=== PATIENT | female | born 1950 | race Caucasian/White ===

== ENCOUNTER 2025-05-24 19:22 | Inpatient (IN) | payer MEDICARE ==
[2025-05-25] MEDS ORDERED: Calcium Carbonate 500 MG ChewTAB PO PRN (00:20)
[2025-05-25] MEDS ORDERED: Acetaminophen 325 MG TAB PO PRN (00:20)
[2025-05-25] MEDS ORDERED: Electrolyte Replacement Protocol 1 EACH FS PRN (00:22)
[2025-05-25 03:48] LABS: #Basophils Less than 0.03 10x3/uL (0.0-0.2); #Eosinophils Less than 0.03 10x3/uL (0.0-0.7); #Monocytes 0.40 10x3/uL (0.11-0.59); #Neutrophils 11.24 10x3/uL (1.40-6.50); %Basophils 0.2 % (0.0-1.0); %Eosinophils 0.0 % (0.0-10.0); %Lymphocytes 5.8 % (21.0-51.0); %Monocytes 3.2 % (0.0-10.0); %Neutrophils 90.0 % (42.0-75.0); Hematocrit 38.1 % (36.0-47.0); Hemoglobin 12.1 g/dL (12.0-16.0); Mean Corpuscular Hemoglobin 33.1 pg (27.0-31.0); Mean Corpuscular Volume 104.1 fL (78.0-98.0); Platelet Count 241 10x3/uL (130-400); Red Blood Cell (RBC) Count 3.66 mill/uL (4.20-5.40); White Blood Cell (WBC) Count 12.49 10x3/uL (4.8-10.8)
[2025-05-25 03:56] VITALS: BMI 39.3
[2025-05-25 04:18] LABS: Troponin I 0.017 ng/mL (< 0.028)
[2025-05-25 04:44] LABS: Anion Gap 16 mmol/L (10-20); BUN (Urea Nitrogen) 18 mg/dL (9.8-20.1); Calc. Creatinine Clearance 99 mL/min (70-130); Calcium 8.7 mg/dL (7.8-10.44); Carbon Dioxide 22 mmol/L (23-31); Chloride 106 mmol/L (98-107); Glucose 174 mg/dL (83-110); Magnesium 2.1 mg/dL (1.6-2.6); Potassium 4.1 mmol/L (3.5-5.1); Sodium 140 mmol/L (136-145)
[2025-05-25] MEDS ORDERED: Non-Formulary Item 1 EACH (Fluticasone/Umeclidin/Vilanter [Trelegy Ellipta 100-62.5-25] 1 INH SCH (09:00)
[2025-05-25] MEDS: Cyanocobalamin (Vitamin B-12) 1,000 MCG TAB PO SCH (09:16)
[2025-05-25] MEDS: Famotidine 20 MG TAB PO SCH (09:17)
[2025-05-25] MEDS: Cholecalciferol 1,000 UNITS (25 MCG) TAB PO SCH (09:17)
[2025-05-25] MEDS: Mometasone 100 MCG HFA INHALER (RT USE) INH SCH (16:10)
[2025-05-25] MEDS: Benzocaine/Menthol 1 LOZ LOZ PO PRN (18:38)
[2025-05-25] MEDS: Ezetimibe 10 MG TAB PO SCH (21:43)
[2025-05-26] MEDS: Pantoprazole 40 MG DR.TAB PO SCH (08:25)
[2025-05-26] MEDS: Aspirin 81 mg Enteric Coated Tablet PO SCH (08:25)
[2025-05-26] MEDS: HYDROcodone/Acetaminophen 5/325 mg Tablet PO SCH (10:25)
[2025-05-26] MEDS: HYDROcodone/Acetaminophen 5/325 mg Tablet PO PRN (16:05)
[2025-05-27 03:48] LABS: #Basophils Less than 0.03 10x3/uL (0.0-0.2); #Eosinophils 0.07 10x3/uL (0.0-0.7); #Monocytes 1.03 10x3/uL (0.11-0.59); #Neutrophils 7.17 10x3/uL (1.40-6.50); %Basophils 0.2 % (0.0-1.0); %Eosinophils 0.7 % (0.0-10.0); %Lymphocytes 17.5 % (21.0-51.0); %Monocytes 10.1 % (0.0-10.0); %Neutrophils 70.6 % (42.0-75.0); Hematocrit 36.1 % (36.0-47.0); Hemoglobin 11.4 g/dL (12.0-16.0); Mean Corpuscular Hemoglobin 32.7 pg (27.0-31.0); Mean Corpuscular Volume 103.4 fL (78.0-98.0); Platelet Count 201 10x3/uL (130-400); Red Blood Cell (RBC) Count 3.49 mill/uL (4.20-5.40); White Blood Cell (WBC) Count 10.16 10x3/uL (4.8-10.8)
[2025-05-27 04:13] LABS: Anion Gap 13 mmol/L (10-20); BUN (Urea Nitrogen) 20 mg/dL (9.8-20.1); Calc. Creatinine Clearance 101 mL/min (70-130); Calcium 8.8 mg/dL (7.8-10.44); Carbon Dioxide 25 mmol/L (23-31); Chloride 107 mmol/L (98-107); Glucose 120 mg/dL (83-110); Potassium 3.9 mmol/L (3.5-5.1); Sodium 141 mmol/L (136-145)
[2025-05-27] MEDS ORDERED: PROPOFOL 20 ML ONE (08:11)
[2025-05-27] MEDS ORDERED: fentaNYL PF 100 MCG/2 ML SYRINGE ONE ×3 (08:11→09:35)
[2025-05-27] MEDS ORDERED: Ondansetron PF 4 MG/2 ML Vial ONE (08:12)
[2025-05-27] MEDS ORDERED: Rocuronium Bromide 10 MG/ML (10ML VIAL) ONE (08:12)
[2025-05-27] MEDS ORDERED: PHENYLEPHRINE-NS 100 MCG/ML 10 ML SYRINGE ONE (08:12)
[2025-05-27] MEDS ORDERED: Ketamine In 0.9 % NaCl 50 MG/5 ML SYRINGE ONE (08:12)
[2025-05-27] MEDS ORDERED: CEFAZOLIN 1 GM VIAL ONE (08:12)
[2025-05-27] MEDS ORDERED: SUGAMMADEX SODIUM 200 MG/2 ML VIAL ONE ×2 (08:12→09:51)
[2025-05-27] MEDS ORDERED: Lidocaine 2% PF 100 mg/5 ml Syringe ONE (08:12)
[2025-05-27] MEDS ORDERED: NOREPINEPHRINE 8 MG/250 ML-D5W 250 ML ONE (08:17)
[2025-05-27] MEDS ORDERED: Bupivacaine 0.25% HCL 30 ML VIAL ONE (08:46)
[2025-05-27] MEDS ORDERED: Ondansetron PF 4 MG/2 ML Vial IVP PRN ×2 (10:18→10:27)
[2025-05-27] MEDS ORDERED: hydrALAZINE 20 MG/ML VIAL SLOW IVP PRN (10:18)
[2025-05-27] MEDS ORDERED: diphenhydrAMINE 25 MG CAP PO PRN (10:27)
[2025-05-27] MEDS ORDERED: diphenhydrAMINE 50 MG/ML VIAL IVP PRN (10:27)
[2025-05-27] MEDS ORDERED: diphenhydrAMINE 50 MG/ML VIAL IM PRN (10:27)
[2025-05-27] MEDS ORDERED: PCA Communication Order-Pharmacy FS SCH (10:30)
[2025-05-27 11:38] LABS: %Basophils 0.2 % (0.0-1.0)
[2025-05-27 12:03] LABS: Anion Gap 12 mmol/L (10-20); BUN (Urea Nitrogen) 16 mg/dL (9.8-20.1); Calc. Creatinine Clearance 106 mL/min (70-130); Calcium 8.1 mg/dL (7.8-10.44); Carbon Dioxide 23 mmol/L (23-31); Chloride 111 mmol/L (98-107); Glucose 145 mg/dL (83-110); Potassium 4.2 mmol/L (3.5-5.1); Sodium 142 mmol/L (136-145)
[2025-05-27] MEDS: HYDROmorphone HCl/0.9% NaCl/PF 30 ML IV SCH (12:17)
[2025-05-27 15:08] LABS: #Basophils 0.03 10x3/uL (0.0-0.2); #Eosinophils Less than 0.03 10x3/uL (0.0-0.7); #Monocytes 1.35 10x3/uL (0.11-0.59); #Neutrophils 15.93 10x3/uL (1.40-6.50); %Eosinophils 0.1 % (0.0-10.0); %Lymphocytes 4.0 % (21.0-51.0); %Monocytes 7.4 % (0.0-10.0); %Neutrophils 87.4 % (42.0-75.0); Hematocrit 36.0 % (36.0-47.0); Hemoglobin 11.3 g/dL (12.0-16.0); Mean Corpuscular Hemoglobin 33.2 pg (27.0-31.0); Mean Corpuscular Volume 105.9 fL (78.0-98.0); Platelet Count 209 10x3/uL (130-400); Red Blood Cell (RBC) Count 3.40 mill/uL (4.20-5.40); White Blood Cell (WBC) Count 18.22 10x3/uL (4.8-10.8)
[2025-05-27] MEDS: Ketorolac Tromethamine 30 MG (1 mL) VIAL IVP SCH (17:06)
[2025-05-27] MEDS: Gabapentin 300 MG CAP PO SCH (21:51)
[2025-05-27] MEDS: Transdermal Patch Removal TOP SCH (21:54)
[2025-05-28 04:46] LABS: #Basophils Less than 0.03 10x3/uL (0.0-0.2); #Eosinophils 0.13 10x3/uL (0.0-0.7); #Monocytes 1.28 10x3/uL (0.11-0.59); #Neutrophils 10.97 10x3/uL (1.40-6.50); %Basophils 0.1 % (0.0-1.0); %Eosinophils 0.9 % (0.0-10.0); %Lymphocytes 12.1 % (21.0-51.0); %Monocytes 9.0 % (0.0-10.0); %Neutrophils 77.3 % (42.0-75.0); Hematocrit 34.9 % (36.0-47.0); Hemoglobin 10.8 g/dL (12.0-16.0); Mean Corpuscular Hemoglobin 32.9 pg (27.0-31.0); Mean Corpuscular Volume 106.4 fL (78.0-98.0); Platelet Count 194 10x3/uL (130-400); Red Blood Cell (RBC) Count 3.28 mill/uL (4.20-5.40); White Blood Cell (WBC) Count 14.21 10x3/uL (4.8-10.8)
[2025-05-28 04:56] LABS: Anion Gap 12 mmol/L (10-20); BUN (Urea Nitrogen) 20 mg/dL (9.8-20.1); Calc. Creatinine Clearance 109 mL/min (70-130); Calcium 8.3 mg/dL (7.8-10.44); Carbon Dioxide 25 mmol/L (23-31); Chloride 107 mmol/L (98-107); Glucose 107 mg/dL (83-110); Potassium 4.2 mmol/L (3.5-5.1); Sodium 140 mmol/L (136-145)
[2025-05-28] MEDS ORDERED: HYDROcodone/Acetaminophen 10/325 mg Tablet PO PRN (11:36)
[2025-05-28] MEDS ORDERED: HYDROcodone/Acetaminophen 5/325 mg Tablet PO PRN (11:36)
[2025-05-29 04:23] LABS: Mean Corpuscular Volume 107.3 fL (78.0-98.0); White Blood Cell (WBC) Count 10.84 10x3/uL (4.8-10.8)
[2025-05-29 04:34] LABS: Anion Gap 12 mmol/L (10-20); BUN (Urea Nitrogen) 21 mg/dL (9.8-20.1); Calc. Creatinine Clearance 99 mL/min (70-130); Calcium 8.3 mg/dL (7.8-10.44); Carbon Dioxide 24 mmol/L (23-31); Chloride 107 mmol/L (98-107); Glucose 105 mg/dL (83-110); Potassium 4.5 mmol/L (3.5-5.1); Sodium 138 mmol/L (136-145)
[2025-05-29 04:37] LABS: #Basophils 0.03 10x3/uL (0.0-0.2); #Eosinophils 0.32 10x3/uL (0.0-0.7); #Monocytes 1.17 10x3/uL (0.11-0.59); #Neutrophils 7.53 10x3/uL (1.40-6.50); %Basophils 0.3 % (0.0-1.0); %Eosinophils 3.0 % (0.0-10.0); %Lymphocytes 15.9 % (21.0-51.0); %Monocytes 10.8 % (0.0-10.0); %Neutrophils 69.4 % (42.0-75.0); Hematocrit 33.6 % (36.0-47.0); Hemoglobin 10.6 g/dL (12.0-16.0); Mean Corpuscular Hemoglobin 33.9 pg (27.0-31.0); Platelet Count 191 10x3/uL (130-400); Red Blood Cell (RBC) Count 3.13 mill/uL (4.20-5.40)
[2025-05-29] MEDS: predniSONE 20 MG TAB PO SCH (10:24)
[2025-05-29] MEDS: Senokot S 8.6-50 MG TAB PO PRN (21:56)
[2025-05-30 07:10] LABS: #Basophils Less than 0.03 10x3/uL (0.0-0.2); #Eosinophils 0.14 10x3/uL (0.0-0.7); #Monocytes 0.93 10x3/uL (0.11-0.59); #Neutrophils 7.30 10x3/uL (1.40-6.50); %Basophils 0.2 % (0.0-1.0); %Eosinophils 1.4 % (0.0-10.0); %Lymphocytes 14.4 % (21.0-51.0); %Monocytes 9.4 % (0.0-10.0); %Neutrophils 73.8 % (42.0-75.0); Hematocrit 31.2 % (36.0-47.0); Hemoglobin 10.0 g/dL (12.0-16.0); Mean Corpuscular Hemoglobin 33.3 pg (27.0-31.0); Mean Corpuscular Volume 104.0 fL (78.0-98.0); Platelet Count 195 10x3/uL (130-400); Red Blood Cell (RBC) Count 3.00 mill/uL (4.20-5.40); White Blood Cell (WBC) Count 9.89 10x3/uL (4.8-10.8)
[2025-05-30 07:56] LABS: Calcium 8.4 mg/dL (7.8-10.44); Glucose 161 mg/dL (83-110)
[2025-05-30 07:57] LABS: Anion Gap 11 mmol/L (10-20); BUN (Urea Nitrogen) 18 mg/dL (9.8-20.1); Calc. Creatinine Clearance 100 mL/min (70-130); Carbon Dioxide 26 mmol/L (23-31)
[2025-05-30 07:59] LABS: Chloride 110 mmol/L (98-107); Potassium 4.2 mmol/L (3.5-5.1); Sodium 143 mmol/L (136-145)
[2025-05-30] MEDS: predniSONE 20 MG TAB PO SCH (10:29)
[2025-05-30] MEDS: Bisacodyl 10 MG SUPP PR PRN (10:45)
[2025-05-30 15:46] VITALS: BP 126/59; TEMP 99.3
== END 2025-05-30 18:56 | disposition home health service (06) | DRG 163 ==
LOC: ERS 19:22 → PCU 21:30 → OBSVTOIN 05-25 08:11
PROVIDERS: ADMIT Internal Medicine; ATTEND Family Medicine
PROC: 0B5 Respiratory System, Destruction (ICD-10-PCS; principal; 2025-05-27)
PROC: 0BTC4ZZ Resection of Right Upper Lung Lobe, Percutaneous Endoscopic Approach (ICD-10-PCS; 2025-05-27)
DX: J44.1 Chronic obstructive pulmonary disease with (acute) exacerbation (principal); J96.01 Acute respiratory failure with hypoxia; I50.32 Chronic diastolic (congestive) heart failure; J93.12 Secondary spontaneous pneumothorax; E78.5 Hyperlipidemia, unspecified; Z90.710 Acquired absence of both cervix and uterus; Z98.890 Other specified postprocedural states; F17.210 Nicotine dependence, cigarettes, uncomplicated; Z83.3 Family history of diabetes mellitus; K21.9 Gastro-esophageal reflux disease without esophagitis; Z88.2 Allergy status to sulfonamides; Z88.0 Allergy status to penicillin; Z88.8 Allergy status to other drugs, medicaments and biological substances; Z79.899 Other long term (current) drug therapy; E66.9 Obesity, unspecified; Z68.39 Body mass index [BMI] 39.0-39.9, adult; I11.0 Hypertensive heart disease with heart failure; Z79.82 Long term (current) use of aspirin
CPT/HCPCS: 36415; 71045; 71250; 80048; 83735; 84484; 85025; 88307; 93005; 94640; 94760; 96374; A4314; C1751; C1776; G0378; J0169; J0665; J0690; J1100; J1885; J2003; J2250; J2405; J2704; J3010; J3490; J7512; J7620

== ENCOUNTER 2025-06-05 13:16 | Emergency (ER) | payer MEDICARE ==
[~2025-06-05 13:16] MED LIST: Iopamidol 370 76% 100 ML VIAL ONE
[2025-06-05 14:56] LABS: #Basophils 0.08 10x3/uL (0.0-0.2); #Eosinophils 0.38 10x3/uL (0.0-0.7); #Monocytes 0.89 10x3/uL (0.11-0.59); #Neutrophils 6.87 10x3/uL (1.40-6.50); %Basophils 0.8 % (0.0-1.0); %Eosinophils 3.6 % (0.0-10.0); %Lymphocytes 20.7 % (21.0-51.0); %Monocytes 8.5 % (0.0-10.0); %Neutrophils 65.3 % (42.0-75.0); Hematocrit 38.4 % (36.0-47.0); Hemoglobin 12.2 g/dL (12.0-16.0); Mean Corpuscular Hemoglobin 32.6 pg (27.0-31.0); Mean Corpuscular Volume 102.7 fL (78.0-98.0); Platelet Count 213 10x3/uL (130-400); Red Blood Cell (RBC) Count 3.74 mill/uL (4.20-5.40); White Blood Cell (WBC) Count 10.52 10x3/uL (4.8-10.8)
[2025-06-05 15:13] LABS: ALT (SGPT) 13 U/L (Less than 34); AST (SGOT) 19 U/L (11-34); Albumin 3.3 g/dL (3.1-4.5); Alkaline Phosphatase 100 U/L (40-110); Anion Gap 17 mmol/L (10-20); BUN (Urea Nitrogen) 16 mg/dL (9.8-20.1); Bilirubin, Total 0.8 mg/dL (0.3-1.2); Calc. Creatinine Clearance 0 mL/min (70-130); Calcium 8.7 mg/dL (7.8-10.44); Carbon Dioxide 25 mmol/L (23-31); Chloride 105 mmol/L (98-107); Globulin 3.3 g/dL (2.4-3.5); Glucose 112 mg/dL (83-110); Potassium 3.6 mmol/L (3.5-5.1); Sodium 143 mmol/L (136-145)
[2025-06-05 15:16] LABS: Troponin I Less than 0.010 ng/mL (< 0.028)
== END 2025-06-05 17:53 | disposition home or self-care (01) ==
LOC: ERS 13:16
DX: Z48.813 Encounter for surgical aftercare following surgery on the respiratory system (principal); I11.0 Hypertensive heart disease with heart failure; I50.9 Heart failure, unspecified; J44.9 Chronic obstructive pulmonary disease, unspecified; Z79.82 Long term (current) use of aspirin; Z79.02 Long term (current) use of antithrombotics/antiplatelets; Z79.899 Other long term (current) drug therapy
CPT/HCPCS: 71260; 76705; 80053; 83880; 84484; 85025; 93005; 96374; 96376; 99283; J3010; Q9967

== ENCOUNTER 2025-06-13 15:42 | Outpatient (CLI) | payer MEDICARE | END 2025-06-13 15:43 | disposition home or self-care (01) | LOC: RAD 15:42 | PROVIDERS: ATTEND Student in an Organized Health Care Education/Training Program | DX: R91.1 Solitary pulmonary nodule (principal); J93.12 Secondary spontaneous pneumothorax; J98.4 Other disorders of lung | CPT/HCPCS: 71046 ==

== ENCOUNTER 2025-06-19 08:45 | Outpatient (CLI) | payer MEDICARE | END 2025-06-19 08:46 | disposition home or self-care (01) | LOC: PET 08:45 | PROVIDERS: ATTEND Student in an Organized Health Care Education/Training Program | DX: J93.12 Secondary spontaneous pneumothorax (principal) | CPT/HCPCS: 78815; A9552 ==